=== PATIENT | male | born 1995 | race Caucasian/White ===

== ENCOUNTER 2016-07-09 15:38 | Emergency (ER) | payer OTHER ==
[2016-07-09 15:54] VITALS: BP 149/72
--- NOTE | 2016-07-09 16:42 | UC ---
Hand/Wrist HPI - HPI Summary HPI Summary: compalint of left ring finger pain that started last night woke up this morning and finger was more painful was playing basketball with his friend basketball thrown at his hand and his finger twisted to the side aching pain that radites into his hand movement increases the pain resting lessens the pain took some tylenol with some relief today - History Of Current Complaint Chief Complaint: UCUpperExtremity Stated Complaint: LEFT RING FINGER INJURY Time Seen by Provider: 07/09/16 16:35 Hx Obtained From: Patient - Allergies/Home Medications Allergies/Adverse Reactions: Allergies Allergy/AdvReac Type Severity Reaction Status Date / Time Penicillins Allergy Hives Verified 07/09/16 15:54 Home Medications: Home Medications Anxiety Medicine PRN 07/09/16 [History] PMH/Surg Hx/FS Hx/Imm Hx Previously Healthy: Yes Endocrine History Of: Denies: Diabetes Respiratory History Of: Denies: Asthma Psychological History Of: Reports: Bipolar Disorder - Surgical History Surgical History: None - Family History Known Family History: Positive: Other - ovarian CA in mother Negative: Cardiac Disease, Hypertension, Diabetes - Social History Occupation: Student Alcohol Use: None Substance Use Type: None Smoking Status (MU): Never Smoked Tobacco - Immunization History Vaccination Up to Date: Yes Review of Systems Constitutional: Negative Skin: Negative Eyes: Negative ENT: Negative Respiratory: Negative Cardiovascular: Negative Gastrointestinal: Negative Genitourinary: Negative Motor: Negative Neurovascular: Negative Musculoskeletal: Other: - left ring finger pain Neurological: Negative Psychological: Negative All Other Systems Reviewed And Are Negative: Yes Physical Exam Triage Information Reviewed: Yes Appearance: No Pain Distress, Well-Nourished Vital Signs: Initial Vital Signs Temp 98.2 F 07/09/16 15:50 Pulse 68 07/09/16 15:50 Resp 16 07/09/16 15:50 BP 149/72 07/09/16 15:50 Pulse Ox 99 07/09/16 15:50 Vital Signs Reviewed: Yes Eyes: Positive: Conjunctiva Clear ENT: Positive: Pharynx normal, TMs normal Neck: Positive: No Lymphadenopathy Respiratory: Positive: Lungs clear, Normal breath sounds, No respiratory distress Cardiovascular: Positive: RRR, No Murmur, Pulses Normal Musculoskeletal: Positive: Other: - LUE- tenderness throughout ring finger and 4th metacarpal- edema and ecchymosis throughout finger no wrist tenderness- negatiove snuff box tenderness Neurological: Positive: Alert Psychological Exam: Normal Skin: Positive: Other - see musckuloskeletal Hand/Wrist Course/Dx - Differential Dx/Diagnosis Differential Diagnosis/HQI/PQRI: Fracture, Sprain, Strain Provider Diagnoses: left ring finger sprain Discharge - Discharge Plan Condition: Stable Disposition: HOME Patient Education Materials: Finger Sprain (ED), RICE Therapy (ED) Referrals: Yolande DE SANTIAGO,Trupti [Primary Care Provider] - Additional Instructions: Rest you finger, wear splint as needed Take acetaminophen or ibuprofen for fever or pain Please review your discharge instructions. If your symptoms do not improve please call your primary care provider or return to urgent care
--- NOTE | 2016-07-09 17:07 | RAD ---
HISTORY: Trauma to the fourth digit of the left hand, pain COMPARISONS: None VIEWS: 3, Frontal, lateral, and oblique views of the fourth digit of the left hand FINDINGS: BONE DENSITY: Normal. BONES: There is no displaced fracture. JOINTS: There is no arthropathy. ALIGNMENT: There is no dislocation. SOFT TISSUES: Unremarkable. OTHER FINDINGS: None. IMPRESSION: NO ACUTE OSSEOUS INJURY. IF SYMPTOMS PERSIST, RECOMMEND REPEAT IMAGING.
== END 2016-07-09 17:21 | disposition home or self-care (01) ==
LOC: UCCORT 15:38
DX: S63.615A Unspecified sprain of left ring finger, initial encounter (principal); F41.9 Anxiety disorder, unspecified; W21.05XA Struck by basketball, initial encounter; Y93.67 Activity, basketball; Y92.9 Unspecified place or not applicable; Z88.0 Allergy status to penicillin
CPT/HCPCS: 73140; 99212; G0463

== ENCOUNTER 2016-07-25 11:57 | Emergency (ER) | payer OTHER ==
[2016-07-25 12:22] VITALS: BP 132/66
--- NOTE | 2016-07-25 12:34 | UC ---
Abdominal Pain Male HPI - HPI Summary HPI Summary: MID ABDOMINAL PAIN X 2 DAYS NO FEVER, NO CHILLS, NO N/V/D/C, NO URINARY SX. 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 Onset/Duration: Gradual Onset, Lasting Days - 2, Still Present Timing: Constant Severity Initially: Moderate Severity Currently: Moderate Location: Other - PERIUMBILICAL AREA Radiates: No Character: Aching Aggravating Factor(s):: Movement Alleviating Factor(s): Rest Associated Signs And Symptoms: Negative: Diaphoresis, Fever, Chest Pain, Dizzy, Back Pain, Constipation, Blood in Stool, Urinary Symptoms, Decreased Appetite, Nausea, Vomiting, Diarrhea, Penile Discharge - Allergies/Home Medications Allergies/Adverse Reactions: Allergies Allergy/AdvReac Type Severity Reaction Status Date / Time Penicillins Allergy Hives Verified 07/09/16 15:54 environmental Allergy Sneezing Uncoded 07/25/16 12:14 Home Medications: Home Medications Cetirizine* [ZyrTEC*] 10 mg PO DAILY PRN 07/25/16 [History Confirmed 07/25/16] PMH/Surg Hx/FS Hx/Imm Hx Endocrine History Of: Denies: Diabetes Respiratory History Of: Denies: Asthma Psychological History Of: Reports: Bipolar Disorder - Surgical History Surgical History: Yes Surgery Procedure, Year, and Place: oral 2011 and 2012 - Family History Known Family History: Positive: Other - ovarian CA in mother Negative: Cardiac Disease, Hypertension, Diabetes - Social History Alcohol Use: None Substance Use Type: None Smoking Status (MU): Never Smoked Tobacco - Immunization History Vaccination Up to Date: Yes Review of Systems Constitutional: Negative Skin: Negative Eyes: Negative ENT: Negative Respiratory: Negative Cardiovascular: Negative Gastrointestinal: Abdominal Pain All Other Systems Reviewed And Are Negative: Yes Physical Exam Triage Information Reviewed: Yes Appearance: Well-Appearing, No Pain Distress, Well-Nourished Vital Signs: Initial Vital Signs Temp 98.4 F 07/25/16 12:02 Pulse 79 07/25/16 12:02 Resp 20 07/25/16 12:02 BP 142/62 07/25/16 12:02 Pulse Ox 100 07/25/16 12:02 Vital Signs Reviewed: Yes Eye Exam: Normal Eyes: Positive: Conjunctiva Clear ENT Exam: Normal ENT: Positive: Normal ENT inspection, Hearing grossly normal, Pharynx normal Neck exam: Normal Neck: Positive: Supple, Nontender, No Lymphadenopathy Respiratory: Positive: Chest non-tender, Lungs clear, Normal breath sounds Cardiovascular: Positive: RRR, No Murmur, Pulses Normal Abdominal Exam: Normal Abdomen Description: Positive: Soft, Other: - MILD TENDENESS MID ABD INCREASE PAIN WITH ACTIVATING ABDOMINAL MUSCLES. Negative: CVA Tenderness (R), CVA Tenderness (L), Distended, Guarding Musculoskeletal Exam: Normal Musculoskeletal: Positive: Strength Intact, ROM Intact, No Edema Neurological: Positive: Alert Skin Exam: Normal Abd Pain Male Course/Dx - Differential Dx/Clinical Impression Provider Diagnoses: ABDOMINAL MUSCLE STRAIN Discharge - Discharge Plan Condition: Stable Disposition: HOME Patient Education Materials: Abdominal Pain (ED) Forms: *Physical Education Release Referrals: Trupti Gupta [Primary Care Provider] - If Needed Additional Instructions: ABDOMINAL MUSCLE STRAIN CONT. WITH REST, TAKE IBUPROFEN NEEDED FOR PAIN FOLLOW UP NEEDED
== END 2016-07-25 12:49 | disposition home or self-care (01) ==
LOC: UCCORT 11:57
DX: S39.011A Strain of muscle, fascia and tendon of abdomen, initial encounter (principal); X58.XXXA Exposure to other specified factors, initial encounter; Y92.9 Unspecified place or not applicable; Z88.0 Allergy status to penicillin
CPT/HCPCS: 99212; G0463

== ENCOUNTER 2017-03-24 21:31 | Emergency (ER) | payer OTHER ==
[2017-03-24 22:15] VITALS: BP 151/99
--- NOTE | 2017-03-24 22:22 | ED ---
Upper Extremity Pain - HPI Summary HPI Summary: 21 yr old with right medial hand, wrist and distal ulnar pain for two day. Onset after hitting a piece of metal with his right hand. Pain is moderate and worse with movement, 5/10. No STS, no bruises. No other complaitns. No numbness or tingling in the hand. - History of Current Complaint Chief Complaint: UCUpperExtremity Stated Complaint: RIGHT WRIST INJURY Time Seen by Provider: 03/24/17 21:57 - Allergies/Home Medications Allergies/Adverse Reactions: Allergies Allergy/AdvReac Type Severity Reaction Status Date / Time Penicillins Allergy Hives Verified 03/24/17 21:58 environmental Allergy Sneezing Uncoded 03/24/17 21:58 PMH/Surg Hx/FS Hx/Imm Hx Previously Healthy: Yes Endocrine/Hematology History: Denies: Hx Diabetes Respiratory History: Denies: Hx Asthma Psychiatric History: Reports: Hx Bipolar Disorder - Surgical History Surgery Procedure, Year, and Place: oral 2011 and 2012 Infectious Disease History: No Infectious Disease History: Denies: Hx Clostridium Difficile, Hx Hepatitis, Hx Human Immunodeficiency Virus (HIV), Hx of Known/Suspected MRSA, Hx Shingles, Hx Tuberculosis, Hx Known/ Suspected VRE, Hx Known/Suspected VRSA, History Other Infectious Disease, Traveled Outside the [place] in Last 30 Days - Family History Known Family History: Positive: Other - ovarian CA in mother Negative: Cardiac Disease, Hypertension, Diabetes - Social History Alcohol Use: None Substance Use Type: Reports: None Smoking Status (MU): Never Smoked Tobacco Review of Systems Positive: Other - right hand and wrist pain All Other Systems Reviewed And Are Negative: Yes Physical Exam Triage Information Reviewed: Yes Vital Signs On Initial Exam: Initial Vitals Temp Pulse Resp BP 98.4 F 112 14 151/99 03/24/17 21:54 03/24/17 21:54 03/24/17 21:54 03/24/17 21:54 Vital Signs Reviewed: Yes Appearance: Positive: Well-Appearing, No Pain Distress Skin: Positive: Warm, Skin Color Reflects Adequate Perfusion Head/Face: Positive: Normal Head/Face Inspection Eyes: Positive: EOMI ENT: Positive: Normal ENT inspection Neck: Positive: Nontender Respiratory/Lung Sounds: Positive: Clear to Auscultation, Breath Sounds Present Cardiovascular: Positive: RRR, Pulses are Symmetrical in both Upper and Lower Extremities - upper Musculoskeletal: Positive: Strength/ROM Intact, Other - he has no deformity, no swelling and no bruise to the right medial hand, wrist or distal ulna. There is diffuse mild tenderness. Neuro vascular intact in right hand. Neurological: Positive: Sensory/Motor Intact, Alert, Oriented to Person Place, Time, CN Intact II-III Psychiatric: Positive: Normal - [place] Coma Scale Best Eye Response: 4 - Spontaneous Best Motor Response: 6 - Obeys Commands Best Verbal Response: 5 - Oriented Diagnostics - Vital Signs Vital Signs Temp Pulse Resp BP 03/24/17 21:54 98.4 F 112 14 151/99 - Laboratory Lab Statement: Any lab studies that have been ordered have been reviewed, and results considered in the medical decision making process. - Radiology right hand and wrist Xray Interpretation: No Acute Changes Radiology Interpretation Completed By: ED Physician Course/Dx - Course Course Of Treatment: 21 yr old with wrist sprain. Cock up splint given. DC to home FU with his orthpedic surgeon he already sees for his ACL. - Diagnoses Provider Diagnoses: Sprain of wrist, right Discharge - Discharge Plan Condition: Good Disposition: HOME Prescriptions: Ibuprofen TAB* [Motrin TAB* 600 MG] 600 mg PO Q6H PRN #20 tab PRN Reason: Pain Patient Education Materials: Wrist Sprain (ED), Hypertension (ED) Referrals: Naima Devine MD [Primary Care Provider] - Elizabeth Fuentes MD [Medical Doctor] -
--- NOTE | 2017-03-25 07:46 | RAD ---
HISTORY: Right hand and wrist trauma and pain COMPARISONS: None VIEWS: 7, Frontal, lateral, and oblique views of the right hand and wrist FINDINGS: BONE DENSITY: Normal. BONES: There is no displaced fracture. JOINTS: There is no arthropathy. ALIGNMENT: There is no dislocation. SOFT TISSUES: Unremarkable. OTHER FINDINGS: None. IMPRESSION: NO ACUTE OSSEOUS INJURY. IF SYMPTOMS PERSIST, RECOMMEND REPEAT IMAGING.
== END 2017-03-24 22:27 | disposition home or self-care (01) ==
LOC: UCCORT 21:31
DX: S63.501A Unspecified sprain of right wrist, initial encounter (principal); W22.8XXA Striking against or struck by other objects, initial encounter; Y93.9 Activity, unspecified; Y92.9 Unspecified place or not applicable; Z88.0 Allergy status to penicillin
CPT/HCPCS: 99213; G0463

== ENCOUNTER 2017-04-23 20:18 | Emergency (ER) | payer OTHER ==
[2017-04-23 20:39] VITALS: BP 153/88
--- NOTE | 2017-04-23 20:55 | UC ---
Lower Extremity/Ankle HPI - HPI Summary HPI Summary: pt reports playing basketball earlier today and fell on another player while jumping and inverted left ankle. Now, painful with ambulation swelling, lateral malleolus. - History of Current Complaint Chief Complaint: UCLowerExtremity Stated Complaint: LEFT FOOT INJURY Time Seen by Provider: 04/23/17 20:22 Hx Obtained From: Patient Onset/Duration: Sudden Onset, Lasting Hours, Still Present Severity Initially: Moderate Severity Currently: Mild Aggravating Factor(s): Standing, Ambulation Alleviating Factor(s): Rest, Elevation Able to Bear Weight: Yes - minimal - Risk Factors Gout Risk Factors: Male DVT Risk Factors: Negative Septic Arthritis Risk Factor: Negative - Allergies/Home Medications Allergies/Adverse Reactions: Allergies Allergy/AdvReac Type Severity Reaction Status Date / Time Penicillins Allergy Hives Verified 04/23/17 20:34 environmental Allergy Sneezing Uncoded 04/23/17 20:34 PMH/Surg Hx/FS Hx/Imm Hx Previously Healthy: Yes - Surgical History Surgical History: Yes Surgery Procedure, Year, and Place: Gallbladder. oral 2011 and 2012 - Family History Known Family History: Positive: Other - ovarian CA in mother Negative: Cardiac Disease, Hypertension, Diabetes - Social History Occupation: Student Lives: With Family Alcohol Use: Occasionally Substance Use Type: None Smoking Status (MU): Never Smoked Tobacco Have You Smoked in the Last Year: No - Immunization History Most Recent Influenza Vaccination: NOT YET Vaccination Up to Date: Yes Review of Systems Constitutional: Negative Skin: Negative Eyes: Negative ENT: Negative Respiratory: Negative Cardiovascular: Negative Gastrointestinal: Negative Genitourinary: Negative Motor: Decreased ROM - secondary to pain left ankle Neurovascular: Negative Musculoskeletal: Arthralgia - left ankle, Decreased ROM - secondary to pain, Edema - lateral left malleolus,, Myalgia - left ankle Neurological: Negative Psychological: Negative Is Patient Immunocompromised?: No All Other Systems Reviewed And Are Negative: Yes Physical Exam Triage Information Reviewed: Yes Appearance: Well-Appearing Vital Signs: Initial Vital Signs Temp 97.9 F 04/23/17 20:34 Pulse 92 04/23/17 20:34 Resp 16 04/23/17 20:34 BP 153/88 04/23/17 20:34 Pulse Ox 99 04/23/17 20:34 Vital Signs Reviewed: Yes Eye Exam: Normal ENT Exam: Normal Respiratory: Positive: No respiratory distress Musculoskeletal Exam: Other Musculoskeletal: Positive: Strength Limited @ - left ankle, ROM Limited @ - left ankle, Edema @ - lateral malleolus Neurological Exam: Normal Psychological Exam: Normal Skin Exam: Normal Lower Extremity Course/Dx - Course Course Of Treatment: Xray: IMPRESSION: Normal ankle radiograph. If the patient 's symptoms persist, follow-up imaging is recommended. - Differential Dx/Diagnosis Differential Diagnosis/HQI/PQRI: Fracture (Closed), Sprain Provider Diagnoses: left ankle sprain. IMPRESSION: Normal ankle radiograph. If the patient's symptoms persist, follow-up imaging is recommended. Discharge - Discharge Plan Condition: Stable Disposition: HOME Patient Education Materials: Ankle Sprain (ED) Referrals: Alfredo Hamlin MD [Medical Doctor] - If Needed Naima Devine MD [Primary Care Provider] - If Needed Additional Instructions: Xray:L
--- NOTE | 2017-04-23 21:20 | RAD ---
INDICATION: Ankle pain and swelling over the lateral malleolus after basketball injury COMPARISON: None. TECHNIQUE: 3 views of the left ankle were obtained. FINDINGS: The well corticated bones exhibit normal alignment. Joint spaces appear maintained. No fracture is seen. IMPRESSION: Normal ankle radiograph. If the patient's symptoms persist, follow-up imaging is recommended.
== END 2017-04-23 21:30 | disposition home or self-care (01) ==
LOC: UCCORT 20:18
DX: S93.402A Sprain of unspecified ligament of left ankle, initial encounter (principal); Y93.67 Activity, basketball; W51.XXXA Accidental striking against or bumped into by another person, initial encounter; Y92.9 Unspecified place or not applicable; Z88.0 Allergy status to penicillin
CPT/HCPCS: 99211; G0463

== ENCOUNTER 2018-04-17 16:47 | Emergency (ER) | payer OTHER ==
[2018-04-17 17:09] VITALS: BP 131/76
--- NOTE | 2018-04-17 18:00 | UC ---
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 Pt has not followed up with ortho but states wrist is no longer hurting and would like a return to work with no restrictions note. " -he reports that he has pain with extreme flexion. he works at [employer]. he has broken his right wrist in past. has good braces. he has continued to practices LAX and to heavy lifting of benching 185 lbs yesterday. - History Of Current Complaint Chief Complaint: UCUpperExtremity Stated Complaint: RECHECK LEFT FOREARM Time Seen by Provider: 04/17/18 17:58 Pain Intensity: 0 - Allergies/Home Medications Allergies/Adverse Reactions: Allergies Allergy/AdvReac Type Severity Reaction Status Date / Time Penicillins Allergy Severe Hives Verified 04/17/18 17:07 environmental Allergy Sneezing Uncoded 04/17/18 17:07 PMH/Surg Hx/FS Hx/Imm Hx Previously Healthy: Yes GI/ History: Gastroesophageal Reflux - Surgical History Surgical History: Yes Surgery Procedure, Year, and Place: Gallbladder. oral 2011 and 2012 - Family History Known Family History: Positive: Other - ovarian CA in mother Negative: Cardiac Disease, Hypertension, Diabetes - Social History Alcohol Use: Occasionally Substance Use Type: None Smoking Status (MU): Never Smoked Tobacco Have You Smoked in the Last Year: No Household Exposure Type: Cigarettes - Immunization History Most Recent Influenza Vaccination: NOT YET Vaccination Up to Date: Yes Review of Systems All Other Systems Reviewed And Are Negative: Yes Constitutional: Positive: Negative Skin: Positive: Negative Eyes: Positive: Negative ENT: Positive: Negative Respiratory: Positive: Negative Cardiovascular: Positive: Negative Gastrointestinal: Positive: Negative Genitourinary: Positive: Negative Motor: Positive: Negative Neurovascular: Positive: Negative Musculoskeletal: Positive: Other: - left wrist pain Neurological: Positive: Negative Psychological: Positive: Negative Is Patient Immunocompromised?: No Physical Exam Triage Information Reviewed: Yes Appearance: Well-Appearing, No Pain Distress, Well-Nourished - vague, inconsistent historian. Vital Signs: Initial Vital Signs Temp 97.3 F 04/17/18 17:05 Pulse 94 04/17/18 17:05 Resp 15 04/17/18 17:05 BP 131/76 04/17/18 17:05 Pulse Ox 99 04/17/18 17:05 Vital Signs Reviewed: Yes Respiratory: Positive: Lungs clear Cardiovascular Exam: Normal Cardiovascular: Positive: RRR Musculoskeletal Exam: Normal Musculoskeletal: Positive: Strength Intact - flexion, extension and b/l deviation wrist. fingers stength intact w/ above motions as well. CR brisk. sensation intact. no bruising or erythema. no swelling. pain with extreme flexion., ROM Intact Neurological Exam: Normal Psychological Exam: Normal Skin Exam: Normal Hand/Wrist Course/Dx - Differential Dx/Diagnosis Differential Diagnosis/HQI/PQRI: Sprain, Strain, Tendonitis Provider Diagnoses: left wrist sprain Discharge - Sign-Out/Discharge Documenting (check all that apply): Patient Departure All imaging exams completed and their final reports reviewed: No Studies - Discharge Plan Condition: Stable Disposition: HOME Patient Education Materials: Hand Sprain (ED) Forms: *Work Release Referrals: Naima Devine MD [Primary Care Provider] - Alfredo Hamlin MD [Medical Doctor] - 3 Days Additional Instructions: Please make sure to follow up with orthopedist to evaluate further and return to work status. - Billing Disposition and Condition Condition: STABLE Disposition: Home
== END 2018-04-17 18:25 | disposition home or self-care (01) ==
LOC: UCCORT 16:47
DX: S63.502A Unspecified sprain of left wrist, initial encounter (principal); Z88.0 Allergy status to penicillin; Z91.048 Other nonmedicinal substance allergy status; X50.0XXA Overexertion from strenuous movement or load, initial encounter; Y92.9 Unspecified place or not applicable
CPT/HCPCS: 99211; G0463

== ENCOUNTER 2018-07-31 08:26 | Emergency (ER) | payer OTHER ==
[2018-07-31 08:45] VITALS: BP 146/86
--- NOTE | 2018-07-31 09:12 | UC ---
Abdominal Pain Male HPI - HPI Summary HPI Summary: 23 yo male with abd pain x 1-2 days Initially felt gassy then some dry heaves with drinking soda now with diarrhea x 3-4 and RLQ abd pain pain 2/10 Has IBS Hx Choly no f/c no UTI symptoms no increased pain with movement no anorexia - History of Current Complaint Chief Complaint: UCAbdominalPain Stated Complaint: RIGHT SIDE ABD PAIN Time Seen by Provider: 07/31/18 08:40 Hx Obtained From: Patient Onset/Duration: Gradual Onset, Lasting Hours Timing: Constant Severity Initially: Mild Severity Currently: Mild Pain Intensity: 2 Pain Scale Used: 0-10 Numeric Location: Discrete At: RLQ Radiates: No Character: Dull Aggravating Factor(s): Nothing Alleviating Factor(s): Nothing Associated Signs And Symptoms: Positive: Nausea - yesterday, Diarrhea. Negative : Diaphoresis, Fever, Cough, Chest Pain, Dizzy, Back Pain, Constipation, Blood in Stool, Urinary Symptoms, Decreased Appetite, Vomiting, Penile Discharge Male Torso: 1 - pain - Allergies/Home Medications Allergies/Adverse Reactions: Allergies Allergy/AdvReac Type Severity Reaction Status Date / Time Penicillins Allergy Severe Hives Verified 07/31/18 08:42 environmental Allergy Sneezing Uncoded 07/31/18 08:42 Home Medications: Home Medications "Stomach Pill" 1 tab PO DAILY 07/31/18 [History] PMH/Surg Hx/FS Hx/Imm Hx Previously Healthy: Yes GI/ History: Other - IBS - Surgical History Surgical History: Yes Surgery Procedure, Year, and Place: Gallbladder. oral 2011 and 2013. Left ACL 2013 - Family History Known Family History: Positive: Other - ovarian CA in mother Negative: Cardiac Disease, Hypertension, Diabetes - Social History Alcohol Use: Occasionally Substance Use Type: None Smoking Status (MU): Never Smoked Tobacco Have You Smoked in the Last Year: No Household Exposure Type: Cigarettes - Immunization History Most Recent Influenza Vaccination: NOT YET Vaccination Up to Date: Yes Review of Systems All Other Systems Reviewed And Are Negative: Yes Constitutional: Positive: Negative Skin: Positive: Negative Eyes: Positive: Negative ENT: Positive: Negative Respiratory: Positive: Negative Cardiovascular: Positive: Negative Gastrointestinal: Positive: Abdominal Pain, Diarrhea Genitourinary: Positive: Negative Motor: Positive: Negative Neurovascular: Positive: Negative Musculoskeletal: Positive: Negative Neurological: Positive: Negative Psychological: Positive: Negative Physical Exam Triage Information Reviewed: Yes Appearance: Well-Appearing, No Pain Distress, Well-Nourished Vital Signs: Initial Vital Signs Temp 98.6 F 07/31/18 08:40 Pulse 98 07/31/18 08:40 Resp 17 07/31/18 08:40 BP 146/86 07/31/18 08:40 Pulse Ox 100 07/31/18 08:40 Vital Signs Reviewed: Yes Eyes: Positive: Conjunctiva Clear ENT: Positive: Hearing grossly normal, Pharynx normal, Nasal congestion, Uvula midline. Negative: Nasal drainage, Tonsillar swelling, Tonsillar exudate, Trismus, Muffled voice, Hoarse voice, Sinus tenderness Neck: Positive: Supple, Nontender, No Lymphadenopathy Respiratory: Positive: Lungs clear, Normal breath sounds, No respiratory distress, No accessory muscle use, Respiratory distress Cardiovascular: Positive: RRR, No Murmur Abdomen Description: Positive: Nontender, No Organomegaly, Soft, Other: - able to jump up and down without pain. Negative: CVA Tenderness (R), CVA Tenderness (L), Distended, Guarding Bowel Sounds: Positive: Present Musculoskeletal: Positive: ROM Intact, No Edema Neurological: Positive: Alert Psychological Exam: Normal Skin Exam: Normal Abd Pain Male Course/Dx - Course Course Of Treatment: UA - rbcs, - leuks - Differential Dx/Clinical Impression Provider Diagnosis: Right lower quadrant abdominal pain, Elevated BP without diagnosis of hypertension Discharge - Sign-Out/Discharge Documenting (check all that apply): Patient Departure All imaging exams completed and their final reports reviewed: No Studies - Discharge Plan Condition: Stable Disposition: HOME Patient Education Materials: Acute Abdominal Pain (ED) Forms: *Work Release Referrals: Naima Devine MD [Primary Care Provider] - If Needed Additional Instructions: I suspect your symptoms are due to a viral illness Please get rechecked in the ER if : pain worsens especially with movement : fever :vomiting recheck in 1-2 days if not better Your BP is higher than we like to see RECHECK in 2-12 weeks - Billing Disposition and Condition Condition: STABLE Disposition: Home
== END 2018-07-31 09:29 | disposition home or self-care (01) ==
LOC: UCCORT 08:26
DX: R10.31 Right lower quadrant pain (principal); R03.0 Elevated blood-pressure reading, without diagnosis of hypertension; K58.0 Irritable bowel syndrome with diarrhea; Z88.0 Allergy status to penicillin; Z91.09 Other allergy status, other than to drugs and biological substances
CPT/HCPCS: 81003; 99211; G0463

== ENCOUNTER 2019-03-16 15:09 | Emergency (ER) | payer OTHER ==
[2019-03-16 15:21] VITALS: BP 144/87
--- NOTE | 2019-03-16 15:24 | UC ---
Lower Extremity/Ankle HPI - HPI Summary HPI Summary: 23 yo male presents with RIGHT ankle pain. He tells me that last night he was playing basketball and went up for a layup and hit his right lateral ankle against a nearby wall and it twisted awkwardly. Had pain trying to ambulate immediately following. Today his pain continues, but he is able to ambulate. Denies numbness or tingling. - History of Current Complaint Stated Complaint: RT ANKLE COMPLAINT Time Seen by Provider: 03/16/19 15:15 Hx Obtained From: Patient Onset/Duration: Sudden Onset Severity Initially: Moderate Severity Currently: Moderate Pain Intensity: 7 Pain Scale Used: 0-10 Numeric - Allergies/Home Medications Allergies/Adverse Reactions: Allergies Allergy/AdvReac Type Severity Reaction Status Date / Time Penicillins Allergy Severe Hives Verified 03/16/19 15:21 environmental Allergy Sneezing Uncoded 03/16/19 15:21 PMH/Surg Hx/FS Hx/Imm Hx GI/ History: Gastroesophageal Reflux - Surgical History Surgical History: Yes Surgery Procedure, Year, and Place: Gallbladder. oral 2011 and 2012. Left ACL 2013 - Family History Known Family History: Positive: Other - ovarian CA in mother Negative: Cardiac Disease, Hypertension, Diabetes - Social History Lives: With Family Alcohol Use: Occasionally Substance Use Type: None Smoking Status (MU): Never Smoked Tobacco Have You Smoked in the Last Year: No Household Exposure Type: Cigarettes - Immunization History Most Recent Influenza Vaccination: NOT YET Vaccination Up to Date: Yes Review of Systems All Other Systems Reviewed And Are Negative: No Constitutional: Positive: Negative Skin: Positive: Negative Respiratory: Positive: Negative Cardiovascular: Positive: Negative Neurovascular: Positive: Negative Musculoskeletal: Positive: Other: - Right ankle pain Neurological: Positive: Negative Psychological: Positive: Negative Physical Exam - Summary Physical Exam Summary: GENERAL: NAD. WDWN. No pain distress. SKIN: No rashes, sores, lesions, or open wounds. CHEST: No accessory muscle use. Breathing comfortably and in no distress. CV: Pulses intact PT and DP. Cap refill <2seconds MSK: Right ankle: Mild TTP about inferior lateral malleolus. FROM. Strength 5/ 5. No edema or obvious bony deformities. Negative talar tilt. No increased laxity. Negative [place] test. NEURO: Alert. Sensations intact and symmetric B/L LEs PSYCH: Age appropriate behavior. Triage Information Reviewed: Yes Vital Signs: Vital Signs: Temp Pulse Resp BP Pulse Ox 99.1 F 87 16 144/87 95 03/16/19 15:16 03/16/19 15:16 03/16/19 15:16 03/16/19 15:16 03/16/19 15:16 Vital Signs Reviewed: Yes Diagnostics - Radiology ankle Radiology Interpretation Completed By: Radiologist Summary of Radiographic Findings: REPORT AND IMPRESSION: #. Negative for fracture, osteochondral lesion, articular malalignment, or suggestion of significant talocrural joint effusion. #. Tiny accessory ossicle versus sequela of previous avulsion injury at the medial malleolus without acute features based on morphology. #. Very mild nonfocal soft tissue swelling. Lower Extremity Course/Dx - Course Course Of Treatment: XR as above. Suspect contusion/sprain. Advised to RICE and take tylenol/ibuprofen for discomfort. Use the gel splint for comfort prn F/u with Ortho if symptoms do not improve within 1 week - Differential Dx/Diagnosis Provider Diagnosis: Ankle sprain Discharge ED - Sign-Out/Discharge Documenting (check all that apply): Patient Departure All imaging exams completed and their final reports reviewed: Yes - Discharge Plan Condition: Stable Disposition: HOME Patient Education Materials: Ankle Sprain (ED) Referrals: Naima Devine MD [Primary Care Provider] - Alfredo Hamlin MD [Medical Doctor] - If Needed Additional Instructions: If you develop a fever, shortness of breath, chest pain, new or worsening symptoms - please call your PCP or go to the ED immediately. Your blood pressure was high at todays visit. Please see your primary provider within 4 weeks for recheck and re-evaluation. 1) Rest, Ice, and elevate your ankle to reduce pain 2) May continue wrapping your ankle for support and comfort 3) If your symptoms do not improve with rest within 7 days - please call Orthopedics at the number below to schedule an appointment for a recheck - Billing Disposition and Condition Condition: STABLE Disposition: Home
== END 2019-03-16 15:57 | disposition home or self-care (01) ==
LOC: UCCORT 15:09
DX: S93.401A Sprain of unspecified ligament of right ankle, initial encounter (principal); Z88.0 Allergy status to penicillin; Z91.09 Other allergy status, other than to drugs and biological substances; W22.01XA Walked into wall, initial encounter; Y93.67 Activity, basketball; Y92.9 Unspecified place or not applicable
CPT/HCPCS: 99212; G0463